=== PATIENT | female | born 1940 | race Caucasian/White ===

== ENCOUNTER 2022-09-04 12:48 | Emergency (ER) | payer OTHER | END 2022-09-04 15:35 | disposition left against medical advice (07) | LOC: EDH 12:48 | DX: M25.559 Pain in unspecified hip (principal); M79.606 Pain in leg, unspecified; Z53.21 Procedure and treatment not carried out due to patient leaving prior to being seen by health care provider ==

== ENCOUNTER 2025-08-06 09:33 | Observation (INO) | payer OTHER ==
[~2025-08-06] VITALS: Ht 149.9 cm; Wt 57.7 kg
--- NOTE | 2025-08-06 10:12 | EKG ---
[facility] Test Date: 2025-08-06 Test Time: 09:51:53 Pat Name: JOVANY PANG Department: ED Room: 303 Gender: F Butcher All Round: [id number] : 1940 Requested By: WILI VERDIN Order Number: [id number] Reading MD: Nel Meraz Measurements Intervals [place] Rate: 88 P: 23 MA: 131 QRS: -42 QRSD: 90 T: 55 QT: 395 QTc: 478 Interpretive Statements Sinus rhythm Left axis deviation No previous ECG available for comparison Electronically Signed On 08-06-2025 21:14:57 PUBLIC ACCOUNTANT by Nel Meraz Please click the below link to view image of tracing.
--- NOTE | 2025-08-06 10:17 | NUR ---
PT LEFT TO CT AT THIS TIME.
[2025-08-06 10:26] LABS: APPEARANCE,URINE CLEAR (CLEAR); GLUCOSE, URINE (UA) NEGATIVE (NEGATIVE); LEUKOCYTE ESTERASE ,URINE 500 Leu/uL (NEGATIVE); NITRATE,URINE 2+ (NEGATIVE); OCCULT BLOOD,URINE NEGATIVE (NEGATIVE)
[2025-08-06 10:26] LABS: IMMATURE GRANULOCYTE ABSOLUTE 0.02 K/uL (0-1); NUCLEATED RED BLOOD CELLS 0.0 % (0.0-0.19); PLATELET COUNT (AUTO) 211 K/uL (130-400); RED BLOOD CELL COUNT(AUTO) 3.18 MIL/uL (4.00-5.50); RED CELL DISTRIBUTION WIDTH 13.3 % (11.0-15.5); WHITE BLOOD COUNT (AUTO) 6.7 K/uL (4.8-10.8)
[2025-08-06 10:27] LABS: ADD UA MICROSCOPIC YES
[2025-08-06 10:31] LABS: SQUAMOUS EPITHELIAL CELL,UR RARE /HPF (0-2)
[2025-08-06 10:36] LABS: CREATININE 1.1 mg/dL (0.5-1.0); GLOMERULAR FILTR. RATE CALC 50.0 mL/min (>90); GLUCOSE,RANDOM 101.0 mg/dL (70-105); SODIUM SERUM 139.0 mmol/L (136-145); UREA NITROGEN, BLOOD 14.0 mg/dL (7-18)
[2025-08-06 10:41] LABS: ASPARTATE AMINOTRANSFERASE 13.0 U/L (10-37); CREATINE KINASE, TOTAL 49.0 U/L (21-232); TOTAL PROTEIN, SERUM 6.0 g/dL (6.0-8.3)
--- NOTE | 2025-08-06 11:05 | HMCIMG ---
EXAM: CR Chest, 1 View. CLINICAL HISTORY: [facility] COMPARISON: None provided. FINDINGS: LUNGS: The lungs show no infiltrate or other acute finding. PLEURAL SPACES: No pleural effusion or pneumothorax. MEDIASTINUM: The cardiomediastinal silhouette is within normal limits. BONES: No aggressive appearing osseous lesion seen. Several old right rib fracture deformities noted. IMPRESSION: No acute cardiopulmonary pathology is evident. /[place]
--- NOTE | 2025-08-06 11:22 | ERN ---
ED Note History of Present Illness Stated Complaint: ALTERED MENTAL STATUS Chief Complaint: Altered Mental Status Time Seen by MD: 09:39 Dictation: 85-year-old female presenting to the emergency department with altered mental status, from baseline family at bedside reports that patient is usually COA x4, patient and family member denies any fever nausea vomiting or abdominal pain. No history of recent falls Allergies: Coded Allergies: No Known Drug Allergies (Unverified Allergy, Unknown, 08/06/25) Past Medical History Past Medical History: Hypertension, Other Additional Past Medical Hx: NERVE PAIN Surgical History: Other Surgical History Other: SPINAL SX Review of System Dictation Constitutional: Negative for fever,chills, and weight loss Eyes: Negative for injury, pain,redness, and discharge ENT: Negative for injury,pain or swelling Cardiovascular: Negative for chest pain, palpitations, and edema Respiratory: Negative for shortness of breath, cough, and wheezing, Abdomen/GI: Negative for abdominal pain, nausea, vomiting, diarrhea, and constipation Back: Negative for injury and pain : Negative for injury, bleeding and discharge MS/Extremity: Negative for injury and deformity Skin: Negative for rash, and discoloration Neuro: Positive for confusion Initial Vital Sign VS Vital Signs Date Time Temp Pulse Resp B/P (MAP) Pulse Ox O2 Delivery O2 Flow Rate FiO2 08/06/25 09:34 98.4 89 16 143/84 97 Room Air 08/06/25 09:44 0 21 Physical Exam Dictation General: awake, alert, appears confused but no acute distress Head/Face: Normocephalic, atraumatic Eyes: PERRL, EOMI, vision at baseline ENT: oral cavity clear, TMs clear, no signs of infection Neck: Trachea midline, supple, no nuchal rigidity Cardiovascular: RRR, normal S1/S2, No MRGs, no JVD Respiratory: CTAB, no respiratory distress, No rales or wheezes Abdomen: Soft, non-tender, non-distended, normal bowel sounds, no guarding or rebound. Skin: Warm, dry, normal turgor, no rash MS/Extremity: Pulses equal, no cyanosis, neurovascular intact, FROM Neuro: Confused to situation, GCS 14, strength 5/5, CN 2-12 intact, normal cerebellar exam, normal gait, Psych: Normal behavior, mood, and affect normal Results (Laboratory/Radiology) Laboratory/Radiology Laboratory Tests Test 08/06/25 09:54 08/06/25 10:13 White Blood Count 6.7 K/uL (4.8-10.8) Red Blood Count 3.18 MIL/uL (4.00-5.50) L Hemoglobin 10.5 g/dL (12.0-16.0) L Hematocrit 31.1 % (36-48) L Mean Corpuscular Volume 97.8 fL (79-99) Mean Corpuscular Hemoglobin 33.0 pg (27.0-33.0) Mean Corpuscular Hemoglobin Concent 33.8 g/dL (32.0-36.0) Red Cell Distribution Width 13.3 % (11.0-15.5) Platelet Count 211 K/uL (130-400) Mean Platelet Volume 11.3 fL (7.5-10.5) H Immature Granulocyte % (Auto) 0.3 % (0-1) Neutrophils (%) (Auto) 67.1 % (40.0-77.0) Lymphocytes (%) (Auto) 20.5 % (21.0-51.0) L Monocytes (%) (Auto) 7.6 % (3.0-13.0) Eosinophils (%) (Auto) 3.6 % (0.0-8.0) Basophils (%) (Auto) 0.9 % (0.0-5.0) Neutrophils # (Auto) 4.5 K/uL (1.8-7.7) Lymphocytes # (Auto) 1.4 K/uL (1.0-4.8) Monocytes # (Auto) 0.5 K/uL (0.1-1.0) Eosinophils # (Auto) 0.24 K/uL (0.00-0.70) Basophils # (Auto) 0.06 K/uL (0.00-0.20) Absolute Immature Granulocyte (auto 0.02 K/uL (0-1) Nucleated Red Blood Cells 0.0 % (0.0-0.19) Sodium Level 139 mmol/L (136-145) Potassium Level 4.3 mmol/L (3.5-5.1) Chloride Level 103 mmol/L (101-111) Carbon Dioxide Level 27 mmol/L (21-32) Blood Urea Nitrogen 14 mg/dL (7-18) Creatinine 1.1 mg/dL (0.5-1.0) H Glomerular Filtration Rate Calc 50 mL/min (>90) Random Glucose 101 mg/dL (70-105) Lactic Acid Level 1.0 mmol/L (0.8-2.5) Total Calcium 9.1 mg/dL (8.5-10.1) Total Bilirubin 0.4 mg/dL (0.2-1.0) Direct Bilirubin 0.1 mg/dL (0.0-0.3) Aspartate Amino Transf (AST/SGOT) 13 U/L (10-37) Alanine Aminotransferase (ALT/SGPT) 11 U/L (12-78) L Alkaline Phosphatase 50 U/L (50-136) Total Creatine Kinase 49 U/L (21-232) Troponin I High Sensitivity 9 ng/L (4-50) Total Protein 6.0 g/dL (6.0-8.3) Albumin 3.7 g/dL (3.5-5.0) Urine Color LIGHT-YELLOW (YELLOW) Urine Appearance CLEAR (CLEAR) Urine pH 6.5 (5.0-8.0) Urine Specific [place] 1.013 (1.001-1.031) Urine Protein NEGATIVE mg/dL (NEGATIVE) Urine Glucose (UA) NEGATIVE mg/dL (NEGATIVE) Urine Ketones NEGATIVE mg/dL (NEGATIVE) Urine Occult Blood NEGATIVE (NEGATIVE) Urine Nitrate 2+ (NEGATIVE) H Urine Bilirubin NEGATIVE mg/dL (NEGATIVE) Urine Urobilinogen 0.2 mg/dL (0.2-1.0) Urine Leukocyte Esterase 500 Cristina/uL (NEGATIVE) H Urine RBC 2-5 /HPF (0-1) H Urine WBC 11-25 /HPF (0-1) H Urine Squamous Epithelial Cells RARE /HPF (0-2) Urine Bacteria FEW /HPF (None Seen) Labs Reviewed?: Yes EKG: (+) NSR EKG Comment: Heart rate 88 normal sinus rhythm normal intervals ED Course ED Course Orders Procedure Category Date Status Time 12 Lead Ekg Tracing- EKG 08/06/25 Complete Technical 09:42 Basic Metabolic Panel LAB 08/06/25 Complete 09:42 Blood Cult JOSE 08/06/25 In Process 09:42 Cbc With Differential LAB 08/06/25 Complete 09:42 Hepatic Function Panel LAB 08/06/25 Complete 09:42 Creatine Kinase, Total LAB 08/06/25 Complete 09:42 Lactic Acid LAB 08/06/25 Complete 09:42 Troponin I High LAB 08/06/25 Complete Sensitivity 09:42 Urinalysis Profile LAB 08/06/25 Complete 09:42 Chest 1vw RAD 08/06/25 Resulted 09:42 Ct Head/Brain W/O CT 08/06/25 Taken Contrast 09:42 Culture Urine JOSE 08/06/25 In Process 10:27 Ceftriaxone 2gm Vial PHA 08/06/25 Complete (Rocephin 2gm Inj) 11:06 0.9% Nacl 500ml PHA 08/06/25 In Process Iv.Soln (Ns 500ml 11:30 Current Medications Medications (Trade) Dose Ordered Sig/Susy Route PRN Reason Start Time Stop Time Status Last Admin Dose Admin Ceftriaxone Sodium (Rocephin 2gm Inj) 2 gm ONCE STAT IVPB 08/06/25 11:06 08/06/25 11:08 DC Sodium Chloride 500 ml @ 0 mls/hr ONCE ONCE IV 08/06/25 11:30 08/06/25 11:31 Vital Signs Date Time Temp Pulse Resp B/P (MAP) Pulse Ox O2 Delivery O2 Flow Rate FiO2 08/06/25 09:44 98.4 82 20 156/98 99 Room Air* 0 21 08/06/25 09:34 98.4 89 16 143/84 97 Room Air Medical Decision Making MDM MDM: Differential diagnosis: Rationale: Tests considered and ordered secondary to shared decision making include: labs, ECG and radiology Previous outside records reviewed: Old ER visits. Risk of complication and/or morbidity or mortality of patient management: None Medications-Per medication reconciliation Need for hospitalization: Patient does meet criteria for hospitalization. Need for emergency major/minor surgery: No There are no social concerns with this patient. Prescription drug management Prescriptions will include symptomatic care Patient's prior external medical records from other ER visits were reviewed by me as indicated. Prior testing and results from previous visits were reviewed. Prior tests were taken into account with medical decision making and resource utilization, independent historian/historians were used to obtain complete medical history. I independently interpreted the test that were performed, results were reviewed by me and considered findings on radiology if ordered. Medical management and examination interpretation discussions were had by me with other qualified healthcare professionals as indicated for the patient's care. 85-year-old female with altered mental status from baseline moderate UTI, IV fluids and antibiotics given admitting for further care and evaluation CT scan shows no acute process. DX & DISP Disposition: Inpatient Departure Impression: Primary Impression: Acute UTI Additional Impression: AMS (altered mental status) Condition: Stable Referrals: SELF,REFERRAL (PCP) WILI VERDIN MD Aug 06, 2025 11:22
[2025-08-06] MEDS: 0.9% NACL 500ML IV.SOLN 500 ML IV ONE (11:30)
--- NOTE | 2025-08-06 12:10 | HP ---
[facility] HISTORY AND PHYSICAL Date of Service: Aug 06, 2025 Time of Service: 12:10 HISTORY OF PRESENT ILLNESS: 85-year-old female with past medical history of hypertension, osteoporosis who presented to the hospital secondary to confusion. The patient's history is obtained from patient's who is present at bedside. Patient is alert oriented x1. She appears confused when seen. She is able to speak and denies any upper or lower extremity weakness. Per he noted that patient was getting increasingly confused since yesterday. Patient denies any fever, chills, chest pain, shortness of breath, abdominal pain, nausea, vomiting. Patient had recently traveled from [place] around a month ago. She denies any cough, changes in her bowel movement, melena, hematochezia. Denied Any fall, syncopal episode. Labs were notable for white count of 6.7, hemoglobin was 10.5, platelet count was 211 K, sodium was 139, potassium was 4.1 creatinine is 1.1, LFTs were unremarkable, UA was concerning for UTI. Patient had a CT head with read pending at this time. REVIEW OF SYSTEMS CONSTITUTIONAL: Denies fevers, chills, or night sweats. No unintentional weight loss reported. Positive for confusion NEUROLOGICAL: Denies headache, amaurosis fugax, motor weakness, sensory deficit, vertigo/spinning sensation, gait abnormalities, or tremors. ENT: No hearing loss, otalgia, otorrhea, rhinitis, rhinorrhea, hoarseness, or sore throat. CARDIOVASCULAR: Denies any exertional angina, dyspnea on exertion, orthopnea, paroxysmal nocturnal dyspnea, palpitations, life-threatening arrhythmias, claudication. PULMONARY: Denies any shortness of breath, cough, phlegm/sputum, hemoptysis, pleuritic chest pain. GASTROINTESTINAL: Denies any type of dysphagia to either liquids or solids. Denies nausea, vomiting, pyrosis, early satiety, abdominal pain, diarrhea, constipation, or changes in stool consistency or caliber. Denies coffee-ground emesis, hematemesis, hematochezia, or melanotic stools. GENITOURINARY: Denies frequency, urgency, nocturia, hematuria or incontinence (Storage/Irritative symptoms.) Low urinary stream, straining to void, urinary intermittency or hesitancy, splitting of the voiding stream, terminal dribbling. ENDOCRINOLOGIC: Denies polyuria, polydipsia, polyphagia or heat/cold intolerances. HEMATOLOGIC: Denies thrombophilia/previous clots, or coagulopathy/bleeding disorders. ONCOLOGIC: Denies personal history of malignancy. DERMATOLOGIC: Denies rashes or pruritus. PSYCHIATRIC: Denies any suicidal or homicidal ideation. Denies hallucinations. PAST MEDICAL HISTORY: Hypertension, osteoporosis PAST SURGICAL HISTORY: History of spine stimulator PAST SOCIAL HISTORY: Denied any smoking, alcohol, drug FAMILY HISTORY: Denied any pertinent family history Coded Allergies: No Known Drug Allergies (Unverified Allergy, Unknown, 08/06/25) PHYSICAL EXAM GENERAL APPEARANCE: Patient is confused when seen at bedside NEUROLOGICAL: Cranial nerves II-XII grossly intact. Patient does move her upper and lower extremity without issues.. HEENT: Face is symmetric. Pupils are equal and reactive. Extraocular movements are intact. NECK: Supple. No JVD. No thyromegaly. No submental, submandibular, pre- /postauricular, occipital or supraclavicular lymphadenopathy. CHEST: Normal chest expansion. No Telemetry. LUNGS: Absence of any rales, rhonchi or any wheezing. CARDIOVASCULAR: Regular. S1 and S2 normal. No appreciable rubs, murmurs or gallops. ABDOMEN: Soft, nontender, and nondistended. There is no rebound, voluntary guarding, or rigidity. : He has a POA present. Urine is yellow EXTREMITIES: Non-edematous and not cyanotic. No clubbing. Good capillary refill. SKIN: No skin breakdown. Vital Sign (Last 24 Hours) 08/06/25 09:44 Temp 98.4 Pulse 82 Resp 20 B/P (MAP) 156/98 Pulse Ox 99 O2 Delivery Room Air* O2 Flow Rate 0 FiO2 21 LABS: Laboratory: Test 08/06/25 10:13 08/06/25 09:54 Range/Units Urine Color LIGHT-YELLOW YELLOW Urine Appearance CLEAR CLEAR Urine pH 6.5 5.0-8.0 Urine Specific [place] 1.013 1.001-1.031 Urine Protein NEGATIVE NEGATIVE mg/dL Urine Glucose (UA) NEGATIVE NEGATIVE mg/dL Urine Ketones NEGATIVE NEGATIVE mg/dL Urine Occult Blood NEGATIVE NEGATIVE Urine Nitrate 2+ H NEGATIVE Urine Bilirubin NEGATIVE NEGATIVE mg/dL Urine Urobilinogen 0.2 0.2-1.0 mg/dL Urine Leukocyte Esterase 500 H NEGATIVE Cristina/uL Urine RBC 2-5 H 0-1 /HPF Urine WBC 11-25 H 0-1 /HPF Urine Squamous Epithelial Cells RARE 0-2 /HPF Urine Bacteria FEW None Seen /HPF White Blood Count 6.7 4.8-10.8 K/uL Red Blood Count 3.18 L 4.00-5.50 MIL/uL Hemoglobin 10.5 L 12.0-16.0 g/dL Hematocrit 31.1 L 36-48 % Mean Corpuscular Volume 97.8 79-99 fL Mean Corpuscular Hemoglobin 33.0 27.0-33.0 pg Mean Corpuscular Hemoglobin Concent 33.8 32.0-36.0 g/dL Red Cell Distribution Width 13.3 11.0-15.5 % Platelet Count 211 130-400 K/uL Mean Platelet Volume 11.3 H 7.5-10.5 fL Immature Granulocyte % (Auto) 0.3 0-1 % Neutrophils (%) (Auto) 67.1 40.0-77.0 % Lymphocytes (%) (Auto) 20.5 L 21.0-51.0 % Monocytes (%) (Auto) 7.6 3.0-13.0 % Eosinophils (%) (Auto) 3.6 0.0-8.0 % Basophils (%) (Auto) 0.9 0.0-5.0 % Neutrophils # (Auto) 4.5 1.8-7.7 K/uL Lymphocytes # (Auto) 1.4 1.0-4.8 K/uL Monocytes # (Auto) 0.5 0.1-1.0 K/uL Eosinophils # (Auto) 0.24 0.00-0.70 K/uL Basophils # (Auto) 0.06 0.00-0.20 K/uL Absolute Immature Granulocyte (auto 0.02 0-1 K/uL Nucleated Red Blood Cells 0.0 0.0-0.19 % Sodium Level 139 136-145 mmol/L Potassium Level 4.3 3.5-5.1 mmol/L Chloride Level 103 101-111 mmol/L Carbon Dioxide Level 27 21-32 mmol/L Blood Urea Nitrogen 14 7-18 mg/dL Creatinine 1.1 H 0.5-1.0 mg/dL Glomerular Filtration Rate Calc 50 >90 mL/min Random Glucose 101 70-105 mg/dL Lactic Acid Level 1.0 0.8-2.5 mmol/L Total Calcium 9.1 8.5-10.1 mg/dL Total Bilirubin 0.4 0.2-1.0 mg/dL Direct Bilirubin 0.1 0.0-0.3 mg/dL Aspartate Amino Transf (AST/SGOT) 13 10-37 U/L Alanine Aminotransferase (ALT/SGPT) 11 L 12-78 U/L Alkaline Phosphatase 50 50-136 U/L Total Creatine Kinase 49 21-232 U/L Troponin I High Sensitivity 9 4-50 ng/L Total Protein 6.0 6.0-8.3 g/dL Albumin 3.7 3.5-5.0 g/dL Current Medications Medications (Trade) Dose Ordered Sig/Susy Route PRN Reason Start Time Stop Time Status Last Admin Dose Admin Ceftriaxone Sodium (Rocephin 2gm Inj) 2 gm ONCE STAT IVPB 08/06/25 11:06 08/06/25 11:08 DC DIAGNOSTICS / RADIOLOGY: [ ] ASSESSMENT: AMS likely in setting of infectious encephalopathy POA Suspected UTI POA History of spine stimulator Hypertension History of osteoporosis Advanced age Debility PLAN: - patient to be admitted to medical-surgical unit with telemetry -in reference to AMS. Follow up on CT results. Continue patient on Rocephin. Follow up on urine culture. Patient to be started on NS for gentle nutrition. We will also request consultation with Neurology. Avoid any sedating medications -obtain patient's home medications she will be reconciled once available -patient to be on 1-1 sitter -check TSH, hemoglobin A1c -further orders per hospitalization course Advanced Care Planning Which of the following were discussed: Hospice care: Yes __ No _x_ Therapeutic options: Yes __ No __ Advance directives: Yes __ No __ Other discussions: Discussed with who?: patient (Patient, family or surrogates) Voluntary nature of this service was explained to the patient? Yes _x_ No __ Amount of time spent: 25 minutes SUSANNE Mccormack MD, MD Aug 06, 2025 12:10
[2025-08-06 13:12] LABS: INR 1.01 (0.85-1.15)
--- NOTE | 2025-08-06 13:40 | NUR ---
DCP:HOME Pt and are byron meyer. Pt uses a cane at home to assist with ambulation. Pt denies any home health or provider services. Pt states that they are able to complete ADLs independently. [place] and uses [facility] for any RX needs. At DC pt will want to go home and family can assist with transportation.
--- NOTE | 2025-08-06 13:44 | HMCIMG ---
EXAM: CT Head Without IV contrast. CLINICAL HISTORY: ams. need stat reading for er TECHNIQUE: Axial computed tomography images of the head/brain without intravenous contrast. COMPARISON: None provided. FINDINGS: BRAIN: No evidence of acute hemorrhage. No mass lesion. No CT evidence for acute territorial infarct. No midline shift or extra-axial collections. VENTRICLES: No hydrocephalus. ORBITS: The orbits are unremarkable. SINUSES AND MASTOIDS: The paranasal sinuses and mastoid air cells are clear. BONES: No fracture. SOFT TISSUES: Unremarkable. IMPRESSION: No acute intracranial abnormality. /[place]
--- NOTE | 2025-08-06 13:57 | NUR ---
GAVE REPORT TO RENU AT THIS TIME.
[2025-08-06 15:00] VITALS: O2SAT 96
[2025-08-06 15:47] VITALS: BP 158/85; PULSE 84; RESP 16; TEMP 97.7
[2025-08-06 20:00] VITALS: O2SAT 95
--- NOTE | 2025-08-06 20:09 | CONS ---
CONSULTATION NOTE Date of Service: Aug 06, 2025 Reason for Consultation: Eval of AMS Requesting Physician: Dr Bryant HISTORY OF PRESENT ILLNESS: Ms. Courtney Henry is an 84-year-old female with a history of osteoporosis and hypertension who presented with confusion yesterday and was diagnosed with a urinary tract infection. She was started on antibiotics (2 grams per day) and IV fluids yesterday. Today, she reports feeling much better compared to yesterday, with significant improvement in her confusion. She states she is feeling okay and is able to move her arms and legs without difficulty. She is asking about going home. Medical History - Osteoporosis - Hypertension Medications and Supplements - Subtraction 2 grams per day - Started yesterday for urine infection REVIEW OF SYSTEMS CONSTITUTIONAL: Denies fever, chills, or fatigue. HEAD/FACE: No signs of trauma. EENT: Denies eye pain, blurred vision, double vision, or light sensitivity. RESPIRATORY: Denies shortness of breath, cough, wheezing CARDIOVASCULAR: Denies chest pain, palpitation, syncope GASTROINTESTINAL/ABDOMINAL: Denies abdominal pain, constipation, diarrhea, nausea or vomiting GENITOURINARY: Denies dysuria or hematuria. MUSCULOSKELETAL: Denies joint pain, tenderness, or trauma. INTEGUMENTARY: Denies rash or itchiness NEUROLOGICAL/PSYCH: Denies anxiety, depression, heat or cold intolerance. PAST MEDICAL HISTORY: as above PAST SURGICAL HISTORY: as above PAST SOCIAL HISTORY: none FAMILY HISTORY: unknown Coded Allergies: No Known Drug Allergies (Unverified Allergy, Unknown, 08/06/25) PHYSICAL EXAM EYES: Anicteric. Pupils equal and reactive. HENT: No oral thrush seen, moist Oral mucosa NECK: Supple, no JVD or thyromegaly. LUNGS: Good air entry. No rales, no rhonchi. CARDIOVASCULAR: S1, S2 regular. No murmur heard. ABDOMEN: Soft, non tender, bowel sounds present, no organomegaly CENTRAL NERVOUS SYSTEM: Awake, alert, oriented x 3. No focal deficits. SKIN: No rashes, no swelling. LYMPHATICS: No peripheral lymphadenopathy MUSCULOSKELETAL: No joint swelling, erythema or tenderness. EXTREMITIES: No cyanosis or clubbing BACK: No deformity, no pressure ulcer. GENITOURINARY: No dysuria or hematuria Vital Sign (Last 24 Hours) 08/06/25 08/06/25 15:00 15:47 Temp 97.7 Pulse 84 Resp 16 B/P (MAP) 158/85 Pulse Ox 98 O2 Delivery Room Air O2 Flow Rate 0 FiO2 21 LABS: Laboratory: Test 08/06/25 10:16 08/06/25 10:13 08/06/25 09:54 Range/Units Prothrombin Time 10.7 9.6-11.6 SEC Prothromb Time International Ratio 1.01 0.85-1.15 Activated Partial Thromboplast Time 24.8 L 26.3-35.5 SEC Urine Color LIGHT-YELLOW YELLOW Urine Appearance CLEAR CLEAR Urine pH 6.5 5.0-8.0 Urine Specific [place] 1.013 1.001-1.031 Urine Protein NEGATIVE NEGATIVE mg/dL Urine Glucose (UA) NEGATIVE NEGATIVE mg/dL Urine Ketones NEGATIVE NEGATIVE mg/dL Urine Occult Blood NEGATIVE NEGATIVE Urine Nitrate 2+ H NEGATIVE Urine Bilirubin NEGATIVE NEGATIVE mg/dL Urine Urobilinogen 0.2 0.2-1.0 mg/dL Urine Leukocyte Esterase 500 H NEGATIVE Cristina/uL Urine RBC 2-5 H 0-1 /HPF Urine WBC 11-25 H 0-1 /HPF Urine Squamous Epithelial Cells RARE 0-2 /HPF Urine Bacteria FEW None Seen /HPF White Blood Count 6.7 4.8-10.8 K/uL Red Blood Count 3.18 L 4.00-5.50 MIL/uL Hemoglobin 10.5 L 12.0-16.0 g/dL Hematocrit 31.1 L 36-48 % Mean Corpuscular Volume 97.8 79-99 fL Mean Corpuscular Hemoglobin 33.0 27.0-33.0 pg Mean Corpuscular Hemoglobin Concent 33.8 32.0-36.0 g/dL Red Cell Distribution Width 13.3 11.0-15.5 % Platelet Count 211 130-400 K/uL Mean Platelet Volume 11.3 H 7.5-10.5 fL Immature Granulocyte % (Auto) 0.3 0-1 % Neutrophils (%) (Auto) 67.1 40.0-77.0 % Lymphocytes (%) (Auto) 20.5 L 21.0-51.0 % Monocytes (%) (Auto) 7.6 3.0-13.0 % Eosinophils (%) (Auto) 3.6 0.0-8.0 % Basophils (%) (Auto) 0.9 0.0-5.0 % Neutrophils # (Auto) 4.5 1.8-7.7 K/uL Lymphocytes # (Auto) 1.4 1.0-4.8 K/uL Monocytes # (Auto) 0.5 0.1-1.0 K/uL Eosinophils # (Auto) 0.24 0.00-0.70 K/uL Basophils # (Auto) 0.06 0.00-0.20 K/uL Absolute Immature Granulocyte (auto 0.02 0-1 K/uL Nucleated Red Blood Cells 0.0 0.0-0.19 % Sodium Level 139 136-145 mmol/L Potassium Level 4.3 3.5-5.1 mmol/L Chloride Level 103 101-111 mmol/L Carbon Dioxide Level 27 21-32 mmol/L Blood Urea Nitrogen 14 7-18 mg/dL Creatinine 1.1 H 0.5-1.0 mg/dL Glomerular Filtration Rate Calc 50 >90 mL/min Random Glucose 101 70-105 mg/dL Hemoglobin A1c 5.7 4.0-6.0 % Estimated Average Glucose (eAG) 117 70-126 mg/dL Lactic Acid Level 1.0 0.8-2.5 mmol/L Total Calcium 9.1 8.5-10.1 mg/dL Total Bilirubin 0.4 0.2-1.0 mg/dL Direct Bilirubin 0.1 0.0-0.3 mg/dL Aspartate Amino Transf (AST/SGOT) 13 10-37 U/L Alanine Aminotransferase (ALT/SGPT) 11 L 12-78 U/L Alkaline Phosphatase 50 50-136 U/L Total Creatine Kinase 49 21-232 U/L Troponin I High Sensitivity 9 4-50 ng/L Total Protein 6.0 6.0-8.3 g/dL Albumin 3.7 3.5-5.0 g/dL Procalcitonin < 0.05 L 0.05-0.5 ng/mL Thyroid Stimulating Hormone (TSH) 0.91 0.36-3.74 uIU/mL DIAGNOSTICS / RADIOLOGY: [facility] neg ASSESSMENT / PLAN: Ms. Courtney Henry is an 84-year-old female with a history of osteoporosis and hypertension presenting with confusion yesterday, now improved, found to have urinary tract infection. Acute encephalopathy Assessment: Now resolved. Patient presented with confusion yesterday that has significantly improved today. Acute encephalopathy appears to be resolving and is secondary to urinary tract infection. CT scan of the brain was normal. Patient demonstrates good cognitive function today with appropriate responses to commands and orientation questions. Plan: - Continue current treatment regimen - Continue IV fluids Urinary tract infection Assessment: Patient diagnosed with urinary tract infection. White blood cell count is 6.7, which is within normal limits. Creatinine is 1.1. Patient started on antibiotic therapy yesterday with clinical improvement noted. Plan: - Continue subtraction 2 grams per day - Continue IV fluids Osteoporosis Assessment: Known diagnosis of osteoporosis. Hypertension Assessment: Known diagnosis of hypertension. Thank you for your consultation. I will sign off. ADRIENNE ORR MD Aug 06, 2025 20:09
[2025-08-06 20:22] VITALS: BP 125/91; PULSE 117; RESP 20; TEMP 98.2
[2025-08-06 20:25] VITALS: BP 147/84; PULSE 93; RESP 17; TEMP 98.3
[2025-08-07] VITALS: BP 148/88; PULSE 91; RESP 18; TEMP 98.1
[2025-08-07] MEDS: 0.9%NACL 1000ML 1,000 ML IV SCH (01:17)
[2025-08-07 04:08] VITALS: BP 143/76; PULSE 83; RESP 17; TEMP 98.3
[2025-08-07 04:13] LABS: INFLUENZA TYPE A Negative For Type A (NEGATIVE); INFLUENZA TYPE B Negative For Type B (NEGATIVE)
[2025-08-07 07:09] LABS: IMMATURE GRANULOCYTE ABSOLUTE 0.03 K/uL (0-1); NUCLEATED RED BLOOD CELLS 0.0 % (0.0-0.19); PLATELET COUNT (AUTO) 211 K/uL (130-400); RED BLOOD CELL COUNT(AUTO) 3.28 MIL/uL (4.00-5.50); RED CELL DISTRIBUTION WIDTH 13.3 % (11.0-15.5); WHITE BLOOD COUNT (AUTO) 7.6 K/uL (4.8-10.8)
[2025-08-07 07:15] LABS: CREATININE 1.1 mg/dL (0.5-1.0); GLOMERULAR FILTR. RATE CALC 50.0 mL/min (>90); GLUCOSE,RANDOM 105.0 mg/dL (70-105); SODIUM SERUM 138.0 mmol/L (136-145); UREA NITROGEN, BLOOD 14.0 mg/dL (7-18)
[2025-08-07 07:50] VITALS: BP 134/68; PULSE 87; RESP 19; TEMP 98
[2025-08-07 08:00] VITALS: O2SAT 0
[2025-08-07] MEDS: PROPRANOLOL HCL 20 MG TAB PO SCH (08:31)
[2025-08-07 12:00] VITALS: BP 173/86; PULSE 64; RESP 19; TEMP 97.4
--- NOTE | 2025-08-07 13:40 | NUR ---
SPEECH TRIGGER COMPLETED / AMS Pt IS A 85 Y.O. FEMALE ADMITTED SECONDARY TO AMS AND UTI. Pt HAS A PAST MEDICAL HISTORY SIGNIFICANT FOR HYPERTENSION AND OSTEOPOROSIS. PATIENT PRESENTED WITH NO PULMONARY INFILTRATES ON MOST RECENT CHEST X-RAY (08/06/2025). Pt CURRENTLY ON GI SOFT/BLAND DIET (REGULAR TEXTURE AND THIN LIQUIDS). PER NURSE MONTERROSO, Pt TOLERATING DIET WITH NO OVERT S/S OF ASPIRATION. PLEASE REQUEST SPEECH THERAPY SERVICES FOR SKILLED BEDSIDE SWALLOW EVALUATION IF Pt PRESENTS WITH +S/S OF ASPIRATION SUCH COUGH RESPONSE, THROAT CLEAR, OR WET VOCAL QUALITY DURING ORAL INTAKE. ALL QUESTIONS ANSWERED AT THIS TIME. Addendum: 08/07/[address] ALTHEA CALLEJAS Amended: Links added.
--- NOTE | 2025-08-07 14:51 | DS ---
Discharge Summary Hospital Course Summary: 85-year-old female with past medical history of hypertension, osteoporosis who presented to the hospital secondary to confusion. The patient's history is obtained from patient's who is present at bedside. Patient is alert oriented x1. She appears confused when seen. She is able to speak and denies any upper or lower extremity weakness. Per he noted that patient was getting increasingly confused since yesterday. Patient denies any fever, chills, chest pain, shortness of breath, abdominal pain, nausea, vomiting. Patient had recently traveled from [place] around a month ago. She denies any cough, changes in her bowel movement, melena, hematochezia. Denied Any fall, syncopal episode. Labs were notable for white count of 6.7, hemoglobin was 10.5, platelet count was 211 K, sodium was 139, potassium was 4.1 creatinine is 1.1, LFTs were unremarkable, UA was concerning for UTI. Patient had a CT head with read pending at this time. The patient who presented with confusion yesterday was diagnosed with a urinary tract infection. She was started on antibiotics (2 grams per day) and IV fluids. Today, she reports feeling much better compared to yesterday, with significant improvement in her confusion. She states she is feeling okay and is able to move her arms and legs without difficulty. She is asking about going home. Acute encephalopathy appears to be resolving and is secondary to urinary tract infection. CT scan of the brain was normal. Patient demonstrates good cognitive function today with appropriate responses to commands and orientation questions. Patient's urine culture came back positive and currently shows Gram-negative rods but per the lab the with sensitivity and specificity results will not be back until tomorrow morning. The patient insists on going home and we are complying with her request at this point since she is doing better clinically and is hemodynamically stable. We are also worried that she might have a ing effect if she stays in the hospital which is a new environment for her compared to at home where she will be in familiar environment. We are discharging her on Augmentin which should cover her Gram-negative rods. We will check her sensitivity and specificity results tomorrow and if there needs to be any changes we will make them and call the patient to let her know of the changes or if she can continue the same medication. [facility](s): Neurology - ADRIENNE ORR MD - Now resolved. Patient presented with confusion yesterday that has significantly improved today. Acute encephalopathy appears to be resolving and is secondary to urinary tract infection. CT scan of the brain was normal. Patient demonstrates good cognitive function today with appropriate responses to commands and orientation questions. Plan: - Continue current treatment regimen - Continue IV fluids Procedure(s): [facility] [address] [place] [address] [id number] IMAGING REPORT Signed PATIENT: JOVANY PANG MR#: [id number] : 1940 SEX: F AGE: 85 LOCATION: [facility] ORDER 2 STATUS: [facility] REPORT#: [id number] SERVICE 1 REASON: gbw ORDERING PHYSICIAN: WILI VERDIN MD PROCEDURE: CXR1VW - CHEST 1VW EXAM: CR Chest, 1 View. CLINICAL HISTORY: gbw COMPARISON: None provided. FINDINGS: LUNGS: The lungs show no infiltrate or other acute finding. PLEURAL SPACES: No pleural effusion or pneumothorax. MEDIASTINUM: The cardiomediastinal silhouette is within normal limits. BONES: No aggressive appearing osseous lesion seen. Several old right rib fracture deformities noted. IMPRESSION: No acute cardiopulmonary pathology is evident. /[place] DICTATED BY: RODY WOODS Jr., MD DATE: 08/06/251203 ELECTRONICALLY SIGNED BY: RODY WOODS Jr., MD DATE: 08/06/251203 [facility] [address] [place] [address] [id number] IMAGING REPORT Addendum PATIENT: JOVANY PANG MR#: [id number] : 1940 SEX: F AGE: 85 [facility] STATUS: ADM IN REPORT#: [id number] SERVICE 1 REASON: ams ORDERING PHYSICIAN: WILI VERDIN MD PROCEDURE: HEAD WO - CT HEAD/BRAIN W/O CONTRAST ADDENDUM REPORT ADDENDUM: Results were shared by telephone at EST 15:04 pm on 08-06-25 and acknowledged by Nurse practitioner, Ruperto Minor /[place] EXAM: CT Head Without IV contrast. CLINICAL HISTORY: ams. need stat reading for er drJose TECHNIQUE: Axial computed tomography images of the head/brain without intravenous contrast. COMPARISON: None provided. FINDINGS: BRAIN: No evidence of acute hemorrhage. No mass lesion. No CT evidence for acute territorial infarct. No midline shift or extra-axial collections. VENTRICLES: No hydrocephalus. ORBITS: The orbits are unremarkable. SINUSES AND MASTOIDS: The paranasal sinuses and mastoid air cells are clear. BONES: No fracture. SOFT TISSUES: Unremarkable. IMPRESSION: No acute intracranial abnormality. /[place] DICTATED BY: RODY WOODS Jr., MD DATE: 08/06/25 1508 ELECTRONICALLY SIGNED BY: DATE: EXAM: CT Head Without IV contrast. CLINICAL HISTORY: ams. need stat reading for er drJose TECHNIQUE: Axial computed tomography images of the head/brain without intravenous contrast. COMPARISON: None provided. FINDINGS: BRAIN: No evidence of acute hemorrhage. No mass lesion. No CT evidence for acute territorial infarct. No midline shift or extra-axial collections. VENTRICLES: No hydrocephalus. ORBITS: The orbits are unremarkable. SINUSES AND MASTOIDS: The paranasal sinuses and mastoid air cells are clear. BONES: No fracture. SOFT TISSUES: Unremarkable. IMPRESSION: No acute intracranial abnormality. /[place] DICTATED BY: RODY WOODS Jr., MD DATE: 08/06/25 1443 ELECTRONICALLY SIGNED BY: RODY WOODS Jr., MD DATE: 08/06/25 1443 Assessment/Plan: ASSESSMENT: AMS likely in setting of metabolic encephalopathy due to UTI POA UTI due to Gram-negative rods POA History of spine stimulator Hypertension History of osteoporosis Advanced age Debility Admission Date: 08/06/2025 Discharge Date: 08/06/2025 Disposition: Home Condition: Stable Activity: As tolerated Home medications: Continued Discharge medications: Amoxicillin/Potassium Clav (Augmentin 500-125 Tablet) 500 Mg-125 Mg Tablet Follow-up appointment: Follow up with the primary care physician within 2-3 days of discharge We reinforced the importance of medication adherence and follow-up appointments. Discharge Instructions: Take all prescribed antibiotics exactly as directed until the course is finished Do not skip doses, even if you feel better Avoid taking any new [id number] medication unless approved by a doctor Drink plenty of fluids (water is best) Confusion increase his fall risk, so move slowly when getting up, use assistance if needed Keep pathways clear at home and use walker/cane if needed Resume activity gradually has been improved Call 911 or go to ER if you develop fever, severe abdominal pain or bloating, nausea or vomiting that does not improve, sudden shortness of breath or chest pain, if confusion returns or worsens, have burning, urgency, foul smell or blo od during urination. Follow up with your primary care physician within 2-3 days of discharge We will call the patient tomorrow if we need to change medication based on the sensitivity and specificity results of the urine culture. Home Medications: Active Scripts Amoxicillin/Potassium Clav (Augmentin 500-125 Tablet) 500 Mg-125 Mg Tablet, 1 TAB PO BID for 7 Days, #14 TAB 0 Refills Prov:DHAVAL JOHNSON MD 08/07/25 Reported Medications Sertraline HCl (Sertraline HCl) 50 Mg Tablet, 1 TAB PO DAILY for 30 Days, #30 TAB 0 Refills 08/06/25 Propranolol HCl (Propranolol HCl) 20 Mg Tablet, 20 MG PO DAILY, TAB 08/06/25 Omeprazole (Omeprazole) 40 Mg Capsule.dr, 1 CAP PO DAILY for 30 Days, #30 CAP 0 Refills 08/06/25 Alendronate Sodium (Alendronate Sodium) 70 Mg Tablet, 1 TAB PO QWEEK for 28 Days, #4 TAB 0 Refills in the morning, at least 30 minutes before the first food, beverage, or medication of the day 08/06/25 New Medications: Amoxicillin/Potassium Clav (Augmentin 500-125 Tablet) 500 Mg-125 Mg Tablet 1 TAB PO BID for 7 Days, #14 TAB 0 Refills Continued Medications: Alendronate Sodium (Alendronate Sodium) 70 Mg Tablet 1 TAB PO QWEEK for 28 Days, #4 TAB 0 Refills in the morning, at least 30 minutes before the first food, beverage, or medicat ion of the day Omeprazole (Omeprazole) 40 Mg Capsule.dr 1 CAP PO DAILY for 30 Days, #30 CAP 0 Refills Propranolol HCl (Propranolol HCl) 20 Mg Tablet 20 MG PO DAILY, TAB Sertraline HCl (Sertraline HCl) 50 Mg Tablet 1 TAB PO DAILY for 30 Days, #30 TAB 0 Refills Time spent arranging discharge: 31-60 minutes ATTESTATION BY PHYSICIAN I have seen and examined the patient. I reviewed the documentation, medical decision making, and treatment plan as noted by the resident physician above. I agree with the findings and plan of care. SARAH GROVES MD, ABHINAV MD Aug 07, 2025 14:51
--- NOTE | 2025-08-07 16:10 | NUR ---
DISCHARGE PERIPHERAL IV REMOVED DISCHARGE EDUCATION AND INSTRUCTIONS PROVIDED TO PATIENT PATIENT AWARE TO FOLLOW UP WITH PCP IN 1 WEEK PATIENT AWARE TO CONTINUE HOME MEDICATIONS DIRECTED BY MD ALL QUESTIONS ANSWERED
== END 2025-08-07 16:00 | disposition home or self-care (01) ==
LOC: EDH 09:33 → INTOOBSV 12:06 → UNDOADMOB 12:06 → EDHIP 12:06 → 3AH 15:13 → EDHIP 15:13 → 3AH 08-07 13:15 → EDHIP 08-07 13:15
PROVIDERS: ADMIT Internal Medicine; ATTEND Internal Medicine
DX: R41.82 Altered mental status, unspecified (principal); N39.0 Urinary tract infection, site not specified; B96.89 Other specified bacterial agents as the cause of diseases classified elsewhere; G93.41 Metabolic encephalopathy; I10 Essential (primary) hypertension; R53.81 Other malaise; R79.1 Abnormal coagulation profile; Z79.899 Other long term (current) drug therapy; Z98.890 Other specified postprocedural states
CPT/HCPCS: 96365; 99284; 83036; 84443; 82550; 80076; 84484; 80048 ×2; 85025 ×2; 85610; 85730; 87040 ×2; 87086 ×2; 83605; 81001; 36415 ×2; 71045; 70450; 93005; 84145; 96361; 87186; 87804 ×2; J7040; J0696; G0378 ×3